=== PATIENT | male | born 1945 | race Native Hawaiian/Other Pacific Islander ===

== ENCOUNTER 2022-11-07 08:25 | Outpatient (CLI) | payer OTHER | END 2022-11-07 19:01 | disposition home or self-care (01) | LOC: MRI 08:25 | PROVIDERS: ATTEND Internal Medicine | DX: R55 Syncope and collapse (principal); G45.9 Transient cerebral ischemic attack, unspecified ==

== ENCOUNTER 2022-11-08 14:35 | Outpatient (CLI) | payer OTHER | END 2022-11-08 19:05 | disposition home or self-care (01) | LOC: MRI 14:35 | PROVIDERS: ATTEND Internal Medicine | DX: R55 Syncope and collapse (principal); G45.9 Transient cerebral ischemic attack, unspecified ==

== ENCOUNTER 2023-04-15 09:55 | Outpatient (CLI) | payer OTHER | END 2023-04-15 18:54 | disposition home or self-care (01) | LOC: RESP 09:55 | PROVIDERS: ATTEND Internal Medicine | DX: Z01.818 Encounter for other preprocedural examination (principal) | CPT/HCPCS: 93005 ==